=== PATIENT | male | born 1945 | race Two or more races ===

== ENCOUNTER 2018-02-26 09:19 | Outpatient (CLI) | payer OTHER | END 2018-02-26 09:24 | disposition home or self-care (01) | LOC: RAD 09:19 | DX: M12.88 Other specific arthropathies, not elsewhere classified, other specified site (principal); E66.8 Other obesity; R73.01 Impaired fasting glucose; Z68.35 Body mass index [BMI] 35.0-35.9, adult; I73.89 Other specified peripheral vascular diseases; I10 Essential (primary) hypertension ==

== ENCOUNTER → 2021-09-05 | Outpatient (CLI) | payer OTHER | END | disposition home or self-care (01) | LOC: PPH VACUNA 07:00 | PROVIDERS: ATTEND Emergency Medicine Pediatric Emergency Medicine | DX: Z23 Encounter for immunization (principal) ==

== ENCOUNTER 2021-10-16 10:21 | Outpatient (CLI) | payer OTHER | END 2021-10-16 10:25 | disposition home or self-care (01) | LOC: RAD 10:21 | PROVIDERS: ATTEND Physical Medicine & Rehabilitation | DX: M54.59 Other low back pain (principal) ==

== ENCOUNTER 2022-01-30 08:00 | Outpatient (CLI) | payer OTHER | END 2022-01-30 08:30 | disposition home or self-care (01) | LOC: PPH VACUNA 08:00 | PROVIDERS: ATTEND Emergency Medicine Pediatric Emergency Medicine | DX: Z23 Encounter for immunization (principal) ==

== ENCOUNTER 2022-10-04 09:14 | Outpatient (CLI) | payer OTHER | END 2022-10-04 09:24 | disposition home or self-care (01) | LOC: PPH VACUNA 09:14 | PROVIDERS: ATTEND Emergency Medicine Pediatric Emergency Medicine | DX: Z23 Encounter for immunization (principal) ==